=== PATIENT | female | born 1975 | race Caucasian/White ===

== ENCOUNTER 2022-09-08 15:18 | Outpatient (CLI) | payer MEDICAID, SELFPAY ==
--- NOTE | 2022-09-08 15:43 | XR_ITS ---
WS: [id number] EXAMINATION: XR shoulder RT min 2V* [id number] REASON FOR EXAM: SHOULDER JOINT PAIN, RIGHT COMPARISON: None available. ORDER DATE: 09/08/2022 3:44 PM TECHNIQUE: 2 views of the right shoulder were obtained. X-RAY FINDINGS: No fractures or dislocations. Normal motion of the shoulder with internal/external rotation. Mild narrowing of the subacromial bursa with type II acromial process Acromioclavicular joint appears unremarkable. Limited visualization of the adjacent hemithorax is unremarkable. XR/XR shoulder RT min 2V* [id number] IMPRESSION: No fractures or dislocations of the right shoulder.
== END 2022-09-08 15:19 | disposition home or self-care (01) ==
PROVIDERS: PCP Nurse Practitioner Family; Visit Provider Family Medicine
DX: M25.511 Pain in right shoulder (principal)
CPT/HCPCS: 73030

== ENCOUNTER 2022-12-04 03:14 | Emergency (ER) | payer MEDICAID, SELFPAY ==
[2022-12-04 03:15] VITALS: BP 152/89; PULSE 86; RESP 18; TEMP 36.7; O2SAT 98; BMI 30.9
[2022-12-04 03:32] VITALS: BP 143/82; PULSE 93; RESP 16; O2SAT 97
--- NOTE | 2022-12-04 03:32 | CTR_ITS ---
PROCEDURE INFORMATION: Exam: CT Abdomen And Pelvis With Contrast Exam date and time: 12/04/2022 3:56 AM Age: 47 years old Clinical indication: Other: Weakness, BELTRAN; Additional info: Rlq abdominal pain TECHNIQUE: Imaging protocol: Computed tomography of the abdomen and pelvis with contrast. Radiation optimization: All CT scans at this facility use at least one of these dose optimization techniques: automated exposure control; mA and/or kV adjustment per patient size (includes targeted exams where dose is matched to clinical indication); or iterative reconstruction. Contrast material: OMNI 350; Contrast volume: 100 ml; Contrast route: INTRAVENOUS (IV); REPORTING DATA: Count of CT and Cardiac NM exams in prior 12 months: This patient has received [address] and 0 known cardiac nuclear medicine studies in the 12 months prior to the current study. COMPARISON: CR XR chest 1V [id number] 11/15/2016 7:01 PM RADIATION DOSE METRICS: Total DLP (mGy-cm): 781.61 FINDINGS: Lungs: The visualized lung bases are clear. Liver: Unremarkable. No enhancing mass. Gallbladder and bile ducts: No calcified gallstones or biliary dilation identified. Pancreas: Unremarkable with no suspicious mass. No ductal dilation. Spleen: The spleen is not enlarged. No suspicious enhancing mass is noted. Adrenal glands: Normal. No mass. Kidneys and ureters: No solid renal mass or hydronephrosis. Few minute bilateral renal cysts. Stomach and bowel: No small bowel obstruction or free air. No overt mucosal thickening. The colon is moderately fecal filled. Appendix: No evidence of appendicitis. Intraperitoneal space: Unremarkable. No free air. No suspicious fluid collection. Vasculature: No AAA or acute vascular lesion identified. Lymph nodes: No enlarged lymph nodes. Urinary bladder: Unremarkable as visualized. Reproductive: Unusual appearance of the lower uterine segment with diffuse hypodensity involving the cervix as well. See series 6, image 35. Involves area up to 7 cm. Bones/joints: No acute fracture. Soft tissues: No acute or suspicious finding noted. CT/CT abdomen pelvis w con* [id number] IMPRESSION: 1. No bowel obstruction or focal inflammatory process. Normal appendix. 2. The colon is moderately fecal filled. 3. Unusual appearance of the lower uterine segment with diffuse hypodensity involving the cervix as well. DDX includes scarring, mass lesion, etc. Follow with equalizer operator. COMMENTS: Consistent with the [employer]'s Incidental Findings Committee white paper (J Am Brandy Radiol 2018): Any incidental renal lesion less than 1 cm or classified as too small to characterize, or any incidental cystic renal lesion characterized as simple-appearing, is likely benign. No follow-up imaging is recommended for these lesions per consensus recommendations based on imaging criteria.
--- NOTE | 2022-12-04 03:32 | CTR_ITS ---
PROCEDURE INFORMATION: Exam: CT Head Without Contrast Exam date and time: 12/04/2022 3:51 AM Age: 47 years old Clinical indication: Pain; Headache not specified; Additional info: Headache, weakness TECHNIQUE: Imaging protocol: Computed tomography of the head without contrast. Radiation optimization: All CT scans at this facility use at least one of these dose optimization techniques: automated exposure control; mA and/or kV adjustment per patient size (includes targeted exams where dose is matched to clinical indication); or iterative reconstruction. REPORTING DATA: Count of CT and Cardiac NM exams in prior 12 months: This patient has received [address] and 0 known cardiac nuclear medicine studies in the 12 months prior to the current study. COMPARISON: CT head wo con* [id number] 11/15/2016 7:39 PM RADIATION DOSE METRICS: Total DLP (mGy-cm): 1207.53 FINDINGS: Brain: No focal hemorrhage or midline shift is identified. Cerebral ventricles: No ventriculomegaly or evidence of acute hydrocephalus. Paranasal sinuses: The partially assessed sinuses are grossly clear. Mastoid air cells: Visualized mastoid air cells are well aerated. Bones/joints: No displaced skull fracture is noted. Soft tissues: Unremarkable. CT/CT head wo con* [id number] IMPRESSION: No acute intracranial abnormality.
--- NOTE | 2022-12-04 03:33 | ECG_ITS ---
[facility] Test Date: 2022-12-04 Pat Name: Nidhi Wyatt Department: Room: Gender: Female Tar Roofer: : 1975 Requested By: Gerry Pichardo Order Number: [id number] Chet MD: Mustapha Chandler M.D. Measurements Intervals [place] Rate: 67 P: 62 ME: 180 QRS: 38 QRSD: 90 T: 39 QT: 382 QTc: 405 Interpretive Statements SINUS RHYTHM Compared to ECG 11/15/2016 21:48:38 No significant changes Electronically Signed On 12-04-2022 16:08:33 BANKING TEACHER by Mustapha Chandler M.D. [email or web address]
--- NOTE | 2022-12-04 03:34 | W.ED.WEAKNES ---
HPI - Weakness General: Chief complaint: Weakness Stated complaint: HEADACHE Time Seen by Provider: 12/04/22 03:20 Source: patient and family Limitations: language barrier History of Present Illness: 47-year-old female who speaks Palestinian. Her family is here to translate. She has multiple complaints. She endorses headache, feeling generally weak, like I am going to for the past several hours. He has had complaints of chest discomfort on and off over the last few days. She complains of abdominal pain, mainly to the right lower abdomen and pelvis. She has had increased frequency and intensity of menstrual bleeding as well. She endorses high blood pressure as well. She has had a sort of skin rash, for which she has been taking sulfur. MD Complaint: generalized weakness Onset (ago): hour(s) Duration: constant Location: generalized Migration: none Severity: moderate Quality: tingling, numbness and aching Relieving factors: none Exacerbating factors: none Associated symptoms: Reports chest pain, chills, headache(s) and nausea; Denies confusion, melena, decreased appetite, diaphoresis, dysuria, fever(s), rash, short of breath, syncope or vomiting Review of Systems Const: Reports: chills; Denies: fever(s) or diaphoresis Eyes: Denies: change in vision ENMT: Denies: throat pain Card: Reports: chest pain; Denies: syncope Resp: Denies: dyspnea, productive cough or non-productive cough GI: Reports: abdominal pain and nausea; Denies: vomiting or melena : Reports: vaginal bleeding; Denies: dysuria Skin/Breast: Reports: pruritus Neuro: Reports: headache(s); Denies: confusion Psych: Reports: anxiety PFSH ED PFSH: Social History Smoking and tobacco status: never smoked Physical Exam Const: COMMON NORMALS: no acute distress GENERAL APPEARANCE: cooperative; not ill appearing and not frail appearing NUTRITIONAL APPEARANCE: overweight HENMT: COMMON NORMALS: normocephalic, atraumatic and Normal external nose present HEAD & SCALP: normocephalic and atraumatic FACE & SINUS: normal facial exam and face symmetric NOSE: Normal external nose present Eye: COMMON NORMALS: Equal, round and reactive pupils present and EOMs intact bilaterally PUPIL: Yes Equal, round and reactive pupils present Neck/C-Spine: GENERAL: Yes trachea midline Chest: CHEST: Yes Symmetrical chest wall rise Resp: COMMON NORMALS: normal respiratory effort, No retractions, No use of accessory muscles and clear to auscultation bilaterally AUSCULTATION: clear to auscultation bilaterally Cardio: COMMON NORMALS: regular rate and regular rhythm RATE: regular rate RHYTHM: regular rhythm GI: COMMON NORMALS: Normal to inspection, nondistended, normoactive bowel sounds present and Soft to palpation PALPATION: Yes Soft to palpation, Yes Tenderness to palpation present (GI) Details: RLQ and No Guarding due to palpation present (GI) : COMMON NORMALS: Yes no CVA tenderness BLADDER/KIDNEY EXAM: Yes no CVA tenderness Back/Pelvis: COMMON NORMALS: no CVA tenderness Extremity: COMMON NORMALS: no pedal edema Neuro: JASMIN COMA SCALE: document GCS findings Jasmin coma scale eye opening: Spontaneous [place] coma scale verbal response: Orientated [place] coma scale motor response: Obey commands [place] coma scale total score: 15 SENSORY EXAM: Yes extremities (intact) Psych: COMMON NORMALS: speech normal SPEECH: Yes normal speech Skin: COMMON NORMALS: no rashes or lesions noted GENERAL SKIN EXAM: no rashes or lesions noted Course Vital Signs: Vital signs: Vital Signs Temperature 98.1 F 12/04/22 03:15 Pulse Rate 78 12/04/22 06:00 Respiratory Rate 18 12/04/22 06:00 Blood Pressure 135/83 12/04/22 06:00 Pulse Oximetry 99 12/04/22 06:00 Oxygen Delivery Me thod 12/04/22 06:00 MDM - Weakness Medical Decision Making The patient has had zofran, toradol and a 1L bolus. Feeling improved. CBC normal. BMP not remarkable. LFT are not remarkable. CT of the head is negative. CT ab shows only constipation. But imaging of the lower uterine segment is abnormal. US is pending. Troponin is normal. EKG is normal as well. Lab Data 12/04/22 03:22 12/04/22 03:22 Radiology Impressions Abdomen/Pelvis CT 12/04/22 03:32 IMPRESSION: 1. No bowel obstruction or focal inflammatory process. Normal appendix. 2. The colon is moderately fecal filled. 3. Unusual appearance of the lower uterine segment with diffuse hypodensity involving the cervix as well. DDX includes scarring, mass lesion, etc. Follow with medical equipment repair technician. COMMENTS: Consistent with the [employer]'s Incidental Findings Committee white paper (J Am Brandy Radiol 2018): Any incidental renal lesion less than 1 cm or classified as too small to characterize, or any incidental cystic renal lesion characterized as simple-appearing, is likely benign. No follow-up imaging is recommended for these lesions per consensus recommendations based on imaging criteria. Head CT 12/04/22 03:32 IMPRESSION: No acute intracranial abnormality. Pelvis Ultrasound 12/04/22 04:43 IMPRESSION: 1. Essentially unremarkable sonographic appearance of the uterus. 2. No sonographically visible abnormality of the lower uterine segment/cervix. However, see above discussion and recommendation. 3. The ovaries are not visualized at this time, see above. 4. There is no visible/significant free pelvic fluid. 5. Other details discussed above. Laboratory Results WBC 9.1 10^3/uL (4.0-10.0) 12/04/22 03:22 RBC 3.89 10^6/uL (4.1-5.3) L 12/04/22 03:22 Hgb 11.8 g/dL (11.5-15.3) 12/04/22 03:22 Hct 38.1 % (37.0-47.0) 12/04/22 03:22 MCV 97.9 fl (81-99) 12/04/22 03:22 MCH 30.3 pg (28.0-34.0) 12/04/22 03:22 MCHC 31.0 g/dL (30.0-36.0) 12/04/22 03:22 RDW 12.3 % (12.1-15.1) 12/04/22 03:22 Plt Count 311 10^3/cmm (130-400) 12/04/22 03:22 MPV 11.6 fL (7.4-10.4) H 12/04/22 03:22 Neut % (Auto) 59.6 % 12/04/22 03:22 Lymph % (Auto) 31.8 % 12/04/22 03:22 [place] % (Auto) 6.4 % 12/04/22 03:22 Eos % (Auto) 1.5 % 12/04/22 03:22 Baso % (Auto) 0.4 % 12/04/22 03:22 Neut # (Auto) 5.42 10^3/uL (1.8-7.7) 12/04/22 03:22 Lymph # (Auto) 2.9 10^3/uL (0.8-4.8) 12/04/22 03:22 [place] # (Auto) 0.6 10^3/uL (0.2-0.9) 12/04/22 03:22 Eos # (Auto) 0.1 10^3/uL (0.0-0.8) 12/04/22 03:22 Baso # (Auto) 0.0 10^3/uL (0.0-0.1) 12/04/22 03:22 Nucleated RBC % (auto) 0 % 12/04/22 03:22 Nucleated RBCs # 0.0 /100WBC 12/04/22 03:22 Sodium 136 mmol/L (136-145) 12/04/22 03:22 Potassium 4.1 mmol/L (3.5-5.1) 12/04/22 03:22 Chloride 102 mmol/L (98-107) 12/04/22 03:22 Carbon Dioxide 24 mmol/L (22-29) 12/04/22 03:22 Anion Gap 14.1 (5-19) 12/04/22 03:22 BUN 12 mg/dL (6-20) 12/04/22 03:22 Creatinine 0.7 mg/dL (0.5-0.9) 12/04/22 03:22 GFR Calculation 88.9 mL/min (90-130) L 12/04/22 03:22 Glucose 126 mg/dL (65-115) H 12/04/22 03:22 Calculated Osmolality 283 mOsm/kg (285-295) L 12/04/22 03:22 Calcium 9.2 mg/dL (8.5-10.5) 12/04/22 03:22 Phosphorus 2.5 mg/dL (2.5-4.5) 12/04/22 03:22 Magnesium 2.1 mg/dL (1.7-2.3) 12/04/22 03:22 Total Bilirubin 0.2 mg/dL (0.15-1.2) 12/04/22 03:22 AST 21 U/L (0-32) 12/04/22 03:22 ALT 18 U/L (0-33) 12/04/22 03:22 Alkaline Phosphatase 73 U/L (35-105) 12/04/22 03:22 Troponin T Gen 5 ng/L 6 ng/L (0-10) 12/04/22 03:22 C-Reactive Protein 3.0 mg/L (0.0-4.9) 12/04/22 03:22 Total Protein 6.7 g/dL (6.6-8.7) 12/04/22 03:22 Albumin 3.9 g/dL (3.5-5.2) 12/04/22 03:22 Globulin 2.8 g/dL (1.3-4.6) 12/04/22 03:22 Discharge Plan Discharge Patient Disposition: Home Clinical Impression: Generalized weakness, Abnormal vaginal bleeding in premenopausal patient Condition: Stable Prescriptions: No Action simvastatin 20 mg tablet 20 mg PO DAILY mcdyeved-wjcapavif-ID 3.5-10,000-1 mg/mL-unit/mL-% solution 4 drp otic (ear) Q8H Discharge Orders: Discharge ED (Routine); Ordered 12/04/22 Ordered By: Gerry Davalos Referrals: Anette Tomlin, RECREATION TECHNICIAN [Primary Care Provider] - 1-3 days Discharge Diet: Advance as tolerated Patient Instructions: Abnormal (Dysfunctional) Uterine Bleeding (ED), Weakness (ED) Activity Restrictions/Additional Instructions: Return for fever greater than 100, worsening discomfort, worsening weakness, trouble with vision, speech or language, any other concerning symptoms. Case management will make an appointment with gynecology for follow-up of your vaginal bleeding. You should hear from them by the beginning of the week. Coding Level of Care Code ED Production Supply Equipment Tender for Deyvi Bonilla
[2022-12-04] MEDS: sodium chloride 0.9% 1,000 ML 999 ML IV (04:05)
[2022-12-04] MEDS: iohexol 350 mg/mL 500 mL Btl (per mL) IV (04:09)
[2022-12-04 04:10] LABS: Basophils % 0.4 %; Eosinophils # 0.1 10^3/uL (0.0-0.8); Eosinophils % 1.5 %; Hematocrit 38.1 % (37.0-47.0); Hemoglobin 11.8 g/dL (11.5-15.3); Lymphocytes # 2.9 10^3/uL (0.8-4.8); Lymphocytes % 31.8 %; Mean Corpuscular Hemoglobin 30.3 pg (28.0-34.0); Mean Corpuscular Volume 97.9 fl (81-99); Mean Platelet Volume 11.6 fL (7.4-10.4); Monocytes # 0.6 10^3/uL (0.2-0.9); Monocytes % 6.4 %; Neutrophils # 5.42 10^3/uL (1.8-7.7); Neutrophils % 59.6 %; Nucleated Red Blood Cells % 0 %; Platelet Count 311 10^3/cmm (130-400); Red Blood Count 3.89 10^6/uL (4.1-5.3); Red Cell Distribution Width 12.3 % (12.1-15.1); White Blood Count 9.1 10^3/uL (4.0-10.0)
[2022-12-04 04:27] LABS: Alanine Aminotransferase 18 U/L (0-33); Albumin Level 3.9 g/dL (3.5-5.2); Alkaline Phosphatase 73 U/L (35-105); Blood Urea Nitrogen 12 mg/dL (6-20); Calcium 9.2 mg/dL (8.5-10.5); Carbon Dioxide 24 mmol/L (22-29); Chloride 102 mmol/L (98-107); Globulin 2.8 g/dL (1.3-4.6); Glomerular Filtration Rate 88.9 mL/min (90-130); Glucose 126 mg/dL (65-115); Magnesium 2.1 mg/dL (1.7-2.3); Osmolality Calculated 283 mOsm/kg (285-295); Phosphorus 2.5 mg/dL (2.5-4.5); Sodium 136 mmol/L (136-145); Total Bilirubin 0.2 mg/dL (0.15-1.2); Total Protein 6.7 g/dL (6.6-8.7); Troponin T (5th) Once 6 ng/L (0-10)
[2022-12-04 04:33] LABS: Anion Gap 14.1 (5-19); Aspartate Amino Transferase 21 U/L (0-32); Potassium 4.1 mmol/L (3.5-5.1)
--- NOTE | 2022-12-04 04:43 | USR_ITS ---
PROCEDURE INFORMATION: Exam: US Pelvis Complete, Transabdominal and US Pelvis, Transvaginal Exam date and time: 12/04/2022 5:54 AM Age: 47 years old Clinical indication: Abnormal findings; Mass/lesion; Uterus; Patient HX: Mass identified in cervix on CT. ; Additional info: Pelvic pain, uterine mass. Right lower quadrant/pelvic pain. Possible abnormality/mass of the lower uterine segment by CT TECHNIQUE: Imaging protocol: Real-time complete transabdominal and transvaginal pelvic ultrasound with image documentation. Transvaginal imaging was used for better evaluation of the endometrium, adnexa, and/or cervix. COMPARISON: CT abdomen pelvis w con* [id number] 12/04/2022 3:56 AM FINDINGS: The uterus measures 7.1 cm in length. There is no visible focal myometrial mass. There is no intrauterine fluid. Endometrial thickness is 4 mm. No definite sonographically visible abnormality of the lower uterine segment or cervix on the provided images. On the earlier CT scan, the lower uterine segment and cervix appear prominent in size, and show significantly less enhancement than the fundus of the uterus. Significance is uncertain. I would still recommend Manufacturing Teacher follow-up with direct visualization of the cervix to exclude a mass or neoplasm. There is no visible/significant free pelvic fluid. Neither ovary is definitely visualized at this time. On the earlier/comparison CT scan, structures felt to represent the ovaries appear normal for age. Adnexal regions otherwise appear essentially unremarkable on the provided images. The urinary bladder was not completely evaluated/imaged at this time. Endovaginal scanning provided better visualization/evaluation of the endometrium/cervix and ovaries/adnexal regions, as discussed above. US/US pelvic limited [id number] IMPRESSION: 1. Essentially unremarkable sonographic appearance of the uterus. 2. No sonographically visible abnormality of the lower uterine segment/cervix. However, see above discussion and recommendation. 3. The ovaries are not visualized at this time, see above. 4. There is no visible/significant free pelvic fluid. 5. Other details discussed above.
[2022-12-04] MEDS: ketorolac 30 mg/mL INJ IVP (04:49)
[2022-12-04] MEDS: ondansetron 2 mg/ML SDV 2 mL 4 MG IVP (04:49)
[2022-12-04 04:54] VITALS: BP 136/77; PULSE 61; RESP 16; O2SAT 100
[2022-12-04 06:00] VITALS: BP 135/83; PULSE 78; RESP 18; O2SAT 99
--- NOTE | 2022-12-06 10:10 | DCPLANNER ---
Addendum entered by Edelmira Mc 01/11/23 14:55: This appointment was rescheduled Addendum entered by Edelmira Mc 12/08/22 07:45: Patient has a follow up appointment scheduled for Tuesday, January 10, 2023 at 8:[address] Moncada at [facility]. Clinic will call patient with appointment information. Original Note: flow manager had message to schedule a follow up appointment for patient with [facility]. flow manager sent patients information to the front office staff at [facility]. Patients information will be printed and reviewed. Clinic will call patient with appointment information.
== END 2022-12-04 06:43 | disposition home or self-care (01) ==
PROVIDERS: Emergency Provider Emergency Medicine; PCP Nurse Practitioner Family
DX: R53.1 Weakness (principal); N93.9 Abnormal uterine and vaginal bleeding, unspecified
CPT/HCPCS: 70450; 74177; 76857; 80053; 83735; 84100; 84484; 85025; 86140; 93005; 96361; 96374; 96375; 99285; J1885; J2405; J7030; Q9967

== ENCOUNTER 2023-09-16 13:57 | Outpatient (CLI) | payer BC, MEDICAID, SELFPAY ==
--- NOTE | 2023-09-16 14:07 | XR_ITS ---
WS: [id number] Right shoulder, 3 views, 09/16/2023 Clinical Data: R SHOULDER JOINT PAIN Comparison: Right shoulder, 09/08/2022 Findings: No fractures or dislocations are seen. The AC joint is normal. The adjacent right clavicle, right sca pula and ribs are normal. The soft tissues are unremarkable. Impression: Negative right shoulder.
--- NOTE | 2023-09-16 14:07 | XR_ITS ---
WS: [id number] Exam: XR knee RT 4V [id number] Date/Time of Exam: 09/16/2023 2:12 PM Reason For Exam: R KNEE PAIN No fracture or dislocation. The joint compartments are preserved. No joint effusion. Small calcificat ion in the quadriceps tendon. IMPRESSION: 1. Negative RIGHT knee.
== END 2023-09-16 13:58 | disposition home or self-care (01) ==
LOC: RAD 13:58
PROVIDERS: PCP Nurse Practitioner Family; Visit Provider Nurse Practitioner Family
DX: M25.561 Pain in right knee (principal); M25.511 Pain in right shoulder
CPT/HCPCS: 73030; 73564

== ENCOUNTER 2024-01-19 08:12 | Outpatient (RCR) | payer SELFPAY | END 2024-01-31 23:59 | disposition home or self-care (01) | LOC: SPT 08:12 | PROVIDERS: Visit Provider Orthopaedic Surgery | DX: M25.511 Pain in right shoulder (principal); M75.101 Unspecified rotator cuff tear or rupture of right shoulder, not specified as traumatic | CPT/HCPCS: 97110; 97163 ==

== ENCOUNTER 2024-02-01 06:00 | Outpatient (RCR) | payer BC, MEDICAID, SELFPAY | END 2024-03-02 23:59 | disposition home or self-care (01) | LOC: SPT 06:00 | PROVIDERS: Visit Provider Orthopaedic Surgery | DX: M25.511 Pain in right shoulder (principal); M75.101 Unspecified rotator cuff tear or rupture of right shoulder, not specified as traumatic | CPT/HCPCS: 97110 ==

== ENCOUNTER → 2025-01-09 16:46 | Outpatient (BNVA) | payer BC, MEDICAID, SELFPAY | PROVIDERS: Visit Provider Emergency Medicine | DX: S93.601A Unspecified sprain of right foot, initial encounter (principal); X58.XXXA Exposure to other specified factors, initial encounter | CPT/HCPCS: 73630 ==

== ENCOUNTER → 2025-04-23 10:30 | Outpatient (BNVA) | payer BC, MEDICAID, SELFPAY | PROVIDERS: PCP Nurse Practitioner Family; Visit Provider Internal Medicine Cardiovascular Disease | DX: R07.9 Chest pain, unspecified (principal) | CPT/HCPCS: 93005 ==

== ENCOUNTER 2025-05-14 12:11 | Outpatient (CLI) | payer BC, MEDICAID, SELFPAY ==
--- NOTE | 2025-05-14 | ECG_ITS ---
[facility]: [facility]25-[facility]14 Pat Name: Nidhi Wyatt Department: Room: Gender: Female Stevedore Hold: : 1975 Requested By: Javi Jones Order Number: [id number] Rosenberg MD: Mustapha Chandler M.D. Interpretive Statements Dobutamine stress test DOBUTAMINE STRESS DATA: Baseline heart rate was 96 beats per minute. Baseline blood pressure was 153/89 millimeters of mercury. Maximal predicted heart rate was 168 beats per minute. Maximum heart rate achieved was 145, which was 86% of the maximum predicted heart rate. Maximum blood pressure was 129/86 millimeters of mercury. Total dobutamine infusion was for 10 minutes and 58 seconds with maximum infusion rate of 30mcg/kg/min. The reason for ending the test was completion of the protocol. The patient complained of shortness of breath during the stress test, which then resolved at the end of the test. ELECTROCARDIOGRAM: BASELINE: Showed sinus rhythm, normal axis, no significant ST-T changes at the baseline noted. [] EXERCISE: At the peak dobutamine infusion level, [] Non specific ST-T changes seen RECOVERY: During the recovery period, heart rate dropped appropriately. No significant ST-T changes in the recovery suggestive of ischemia noted. [] CONCLUSION: 1. Heart rate response was appropriate. 2. Blood pressure response was appropriate. 3. Symptoms not suggestive of ischemia. 4. Electrocardiogram portion of the stress test was not suggestive of ischemia. 5. Echocardiogram stress test will be documented separately. Electronically Signed On 05-19-2025 12:24:05 CDT by Mustapha Chandler M.D. [email or web address] [email or web address]
[2025-05-14 12:27] VITALS: BMI 34.0
--- NOTE | 2025-05-14 12:28 | USCV_ITS ---
Nidhi Wyatt Age: 50 Gender: F : 1975 Exam Date: 05/14/2025 12:43 Ordering Phys: Javi Jones MD ([email or web address]) Technologist: Exam Location: [facility] [place] Indication: chest pain Rhythm: Sinus Patient History: HTN, HIGH CHOLESTEROL Cardiac Medications: NONE Medications in past 24 hours: NONE Contrast: Stress Results Protocol: Roddy Total dose(mL): Exercise Duration (min:sec): 10.58 METS: 1.0 Resting HR: 98 Resting BP: 153 / 89 Peak HR: 145 Peak BP: 153 / 89 Max Predicted HR: 168 86 % Max Predicted HR Target HR: 143 Double Product: 09585 Stress Summary: DOBUTAMINE MAX DOSE OF 30MCG/KG/MIN. BP Response: NORMAL Reason for Termination: TARGET HR REACHED Cardiac Symptoms: SOB THAT RESOLVED QUICKLY DURING RECOVERY ECG Analysis Resting ECG: Sinus rhythm, normal axis, no significant ST-T changes at the baseline noted. Stress ECG: At the peak dobutamine infusion level, non- specific ST-T changes seen Arrhythmia: None MEASUREMENTS (Male/Female) Normal Values FINDINGS At baseline, LV systolic function is normal with EF of 55-60%. No regional wall motion abnormalities. At peak stress levels, patient had hyperdynamic LV. No evidence of LV dysfunction or regional wall motion abnormalities. Stress test is negative for ischemia. CONCLUSIONS 1. Dobutamine stress echocardiogram is not indicative of ischemia. 2. At baseline, LV systolic function is normal. 3. EKG portion of stress test is not indicative of ischemia. Mustapha Chandler MD (Electronically Signed) Final Date: 19 May 2025 13:58 S
[2025-05-14] MEDS: DOBUTtamine 200 MG in sodium chloride 0.9% 34 ML 13.47 MG IV (12:47)
[2025-05-14] MEDS: atropine 0.1 mg/mL Syr 10 mL 0.5 MG IVP (12:56)
[2025-05-14] MEDS: metoprolol tartrate 1 mg/1 mL SDV 5 mL 5 MG IVP (13:01)
[2025-05-14 13:23] VITALS: BMI 34.0
[2025-05-14 13:36] VITALS: BP 122/84; PULSE 99
== END 2025-05-14 12:12 | disposition home or self-care (01) ==
LOC: CDL 12:14
PROVIDERS: PCP Nurse Practitioner Family; Visit Provider Internal Medicine Cardiovascular Disease
DX: R07.9 Chest pain, unspecified (principal)
CPT/HCPCS: 36415; 93017; 93350; 96374; 96375; J0461; J1250; J3490; J7050